=== PATIENT | male | born 1960 | race Two or more races ===

== ENCOUNTER → 2024-10-10 | Outpatient (CLI) | payer MEDICARE, BC, SELFPAY ==
--- NOTE | 2024-10-10 13:30 | RAD_ITS ---
PROCEDURE: INJ/ASP KUMAR JT SHOULD/HIP/KNEE 10/10/2024 REASON FOR EXAM: PAIN IN RIGHT SHOULDER/SECONDARY OSTEOARTHRITIS, R TECHNIQUE: The procedure as well as the benefits and possible complications were explained to the patient. Informed consent was obtained. The patient was in the supine position. The overlying skin was prepped and draped in the usual sterile fashion. Following local anesthetic application and direct fluoroscopic guidance, a 22 gauge spinal needle was placed into the right shoulder joint. 2 cc of Isovue-300 was injected for confirmation. Following this, 4 cc of 1% lidocaine and 12 mg of betamethasone were injected. 41 seconds of fluoroscopy. 12.3 mGy. 1 image was submitted. COMPARISON: None FINDINGS: Successful right shoulder injection as described. RAD/Inj/Asp Kumar Jt Should/Hip/Knee IMPRESSION: Successful right shoulder injection as described. The patient tolerated the pr ocedure well. Reading Location: [place] [id number]
[2024-10-10] MEDS: Lidocaine 2% (5ml sdv) 5 ML VIAL.MPF INFILT (13:59)
[2024-10-10] MEDS: Betamethasone/Betamethasone 30 MG/5 ML Vial 12 MG INTRAARTIC (14:01)
[2024-10-10] MEDS: Lidocaine 1% (5 ml sdv) 5 ML Vial 4 ML OPERA.SITE (14:01)
== END | disposition home or self-care (01) ==
PROVIDERS: PCP Family Medicine; Referring Provider Specialist; Visit Provider Specialist
DX: M25.511 Pain in right shoulder (principal); M19.211 Secondary osteoarthritis, right shoulder
CPT/HCPCS: 20610; 77002; Q9967; J0702

== ENCOUNTER → 2024-11-03 | Outpatient (CLI) | payer MEDICARE, BC, SELFPAY ==
--- NOTE | 2024-11-03 08:30 | RAD_ITS ---
PROCEDURE: INJ/ASP KUMAR JT SHOULD/HIP/KNEE 11/03/2024 REASON FOR EXAM: SECONDARY OSTEOARTHRITIS, LEFT SHOULDER/PAIN IN LE TECHNIQUE: The procedure as well as the benefits and possible complications including infection and bleeding were explained to the patient. Informed consent was obtained. The patient was in the supine position. The overlying skin was prepped and draped in the usual sterile fashion. Following local anesthetic application and under direct fluoroscopic guidance, a 22 gauge spinal needle was placed into the shoulder joint. 2 cc of Isovue-300 was injected for confirmation. Following this, 12 mg of betamethasone and 4 cc of 1% lidocaine was injected as prescribed. The patient tolerated the procedure well. Radiation dose: 1 minute and 28 seconds of fluoroscopy. 17.5 mGy. 1 image was obtained. COMPARISON: None FINDINGS: Successful left shoulder injection with injection of the prescribed medication. RAD/Inj/Asp Kumar Jt Should/Hip/Knee IMPRESSION: Successful left shoulder injection as described. The patient tolerated the pro cedure well. No immediate complication noted. Reading Location: [place] [id number]
[2024-11-03] MEDS: Lidocaine 2% (5ml sdv) 5 ML VIAL.MPF INFILT (08:43)
[2024-11-03] MEDS: Betamethasone/Betamethasone 30 MG/5 ML Vial 12 MG OPERA.SITE (08:45)
--- NOTE | 2024-11-03 09:00 | PCM.OPRPT ---
Problems Associated Problem List Diagnoses (1) Shoulder pain, left: Multi Select Codes Radiology Rad Xray Procedures: 68651 Inj Asp major Joint - Hip, Knee (left shoulder) and 22872-92 Fluoroscopic guidance for needle placement Operative Report (Standard) Operative Information Date of Procedure: 11/03/24 Pre-Operative Diagnosis: Left Shoulder Pain Post-Operative Diagnosis: Left Shoulder Pain Surgery/Procedure Performed: Left Shoulder Injection community board member: No Type of Anesthesia: Local Select all DRAINS/GRAFTS/IMPLANTS that apply: None Estimated Blood Loss: 0 Specimen collected: No Surgical Findings: None Complications Complications: No
== END | disposition home or self-care (01) ==
LOC: RAD 08:22
PROVIDERS: PCP Family Medicine; Referring Provider Specialist; Visit Provider Specialist
DX: M19.012 Primary osteoarthritis, left shoulder (principal); M25.512 Pain in left shoulder
CPT/HCPCS: 20610; 77002; Q9967; J0702